=== PATIENT | female | born 1985 | race African-American/Black ===

== ENCOUNTER 2017-07-15 12:32 | Emergency (ER) | payer OTHER ==
[~2017-07-15] VITALS: Ht 167.6 cm; Wt 88.9 kg
[2017-07-15 12:32] VITALS: BP 141/86
== END 2017-07-15 13:15 | disposition left against medical advice (07) ==
LOC: ER 12:32
DX: Z53.21 Procedure and treatment not carried out due to patient leaving prior to being seen by health care provider (principal)